=== PATIENT | male | born 1940 | race Caucasian/White ===

== ENCOUNTER 2020-12-28 16:53 | Emergency (ER) | payer MEDICARE ==
[~2020-12-28] VITALS: Ht 175.3 cm; Wt 100.0 kg
--- NOTE | 2020-12-28 17:28 | NUR ---
pt evaluated by Kenya Chavarria PA at triage
[2020-12-28 17:29] VITALS: BP 120/72
[2020-12-28 19:30] LABS: ALANINE AMINOTRANSFERASE 27 U/L (12-78); ALBUMIN 3.1 G/DL (3.4-5.0); ALBUMIN/GLOBULIN RATIO 0.7 (1.1-1.5); ALKALINE PHOSPHATASE 64 IU/L (46-116); ANION GAP 8 (8-16); ASPARTATE AMINO TRANSFERASE 22 U/L (10-37); BASOPHILS % (AUTO) 0.4 % (0-1); BILIRUBIN,TOTAL 1.7 MG/DL (0.1-1.0); BLOOD UREA NITROGEN 15 MG/DL (7-18); BUN/CREATININE RATIO 14.7 (5.4-32.0); CALCIUM 8.5 MG/DL (8.5-10.1); CHLORIDE 103 MMOL/L (99-107); CREATININE 1.02 MG/DL (0.60-1.10); EOSINOPHILS # (AUTO) 0.1 X10'3 (0-0.9); EOSINOPHILS % (AUTO) 1.1 % (0-6); GLUCOSE 97 MG/DL (70-104); HEMATOCRIT 40.5 % (42.0-52.0); LYMPHOCYTES # (AUTO) 1.2 X10'3 (1.1-4.8); LYMPHOCYTES % (AUTO) 21.1 % (21-51); MEAN CORPUSCULAR HEMOGLOBIN 34.5 PG (27.0-31.0); MEAN CORPUSCULAR HGB CONC 34.5 g/dL (33.0-36.5); MEAN CORPUSCULAR VOLUME 99.9 FL (78-98); MEAN PLATELET VOLUME 7.2 FL (7.4-10.4); MONOCYTES # (AUTO) 0.5 X10'3 (0-0.9); MONOCYTES % (AUTO) 7.8 % (2-12); NEUTROPHILS # (AUTO) 4.1 X10'3 (1.8-7.7); NEUTROPHILS % (AUTO) 69.6 % (42-75); PLATELET COUNT 219 X10'3 (140-440); POTASSIUM 4.1 MMOL/L (3.5-5.1); RED BLOOD COUNT 4.06 X10'6 (4.70-6.10); RED CELL DISTRIBUTION WIDTH 12.9 % (11.5-14.5); SODIUM 140 MMOL/L (135-145); TOTAL CARBON DIOXIDE 29.3 MMOL/L (24-32); TOTAL PROTEIN 7.5 G/DL (6.4-8.2); WHITE BLOOD COUNT 5.8 X10'3 (4.5-11.0); eGFR 70 ML/MIN
[2020-12-28] MEDS ORDERED: LIDOcaine 1% W/epiNEPHrine 1:200,000 10ml vial IJ ONE (20:50)
[2020-12-28] MEDS ORDERED: TETanus/Pertussis (Acell)/Diphther VAC/PF (Tdap-Adult) 0.5ml syringe IMVAC ONE (20:55)
[2020-12-28] MEDS ORDERED: LIDOCAINE 1%/EPI 1:100,000 inj. 10 ML multi-dose vial IJ ONE (21:05)
[2020-12-28] MEDS ORDERED: HYDROcodone/acetaminophen 10/325mg tab PO ONE (21:20)
[2020-12-28] MEDS ORDERED: HYDR-3972 PO (21:21)
== END 2020-12-29 06:52 | disposition home or self-care (01) ==
LOC: ER 16:59
DX: S61.212A Laceration without foreign body of right middle finger without damage to nail, initial encounter (principal); S09.90XA Unspecified injury of head, initial encounter; S50.311A Abrasion of right elbow, initial encounter; S63.501A Unspecified sprain of right wrist, initial encounter; I48.91 Unspecified atrial fibrillation; Z20.3 Contact with and (suspected) exposure to rabies; W19.XXXA Unspecified fall, initial encounter; Y93.89 Activity, other specified; Y92.89 Other specified places as the place of occurrence of the external cause; Y99.8 Other external cause status
CPT/HCPCS: 12001; 29130; 36415; 70450; 72125; 73080; 73110; 73130; 80053; 85025; 90471; 90715; 93005; 99285